=== PATIENT | male | born 1985 | race Caucasian/White ===

== ENCOUNTER 2020-06-06 07:32 | Emergency (ER) | payer OTHER ==
[2020-06-06] MEDS ORDERED: Sodium Chloride 0.9% 10 ML Syringe FLUSH PRN (07:40)
[2020-06-06] MEDS ORDERED: Lactated Ringers 1,000 ML IV ONE (07:42)
[2020-06-06] MEDS ORDERED: Fluorescein 1 MG Ophth Strip EYEBOTH ONE (09:11)
[2020-06-06] MEDS ORDERED: Diphtheria,Pertussis(Acell),Tetanus Vaccine 0.5 ML Syringe IM ONE (09:12)
[2020-06-06] MEDS ORDERED: Diphtheria,Pertussis(Acell),Tetanus Vaccine 0.5 ML Syringe ONE (09:31)
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
[2020-06-06] MEDS ORDERED: Lidocaine 1% 10 ML MDV ONE (11:58)
--- NOTE | 2020-06-07 08:34 | CR ---
Chest: Portable view of the chest was obtained. Comparison: No prior chest imaging is available. Heart size and mediastinum are normal. Slight inferior bony projections are noted off the left clavicle with mild chronic left acromioclavicular separation. Lungs are clear with no acute parenchymal change. Impression: 1. Nothing acute is appreciated on portable chest x-ray. Diagnostic code #2
== END 2020-06-06 10:05 | disposition home or self-care (01) ==
LOC: JD.ED 07:32
DX: T20.26XA Burn of second degree of forehead and cheek, initial encounter (principal); T23.202A Burn of second degree of left hand, unspecified site, initial encounter; Z23 Encounter for immunization; Z20.822 Contact with and (suspected) exposure to COVID-19; W40.1XXA Explosion of explosive gases, initial encounter
CPT/HCPCS: 36415; 36600; 71045; 80053; 82803; 83735; 84484; 85007; 85027; 85610; 87635; 90471; 90715; 93005; 99284; J7120; U0002